=== PATIENT | female | born 1950 | race African-American/Black ===

== ENCOUNTER 2017-05-10 08:33 | Emergency (ER) | payer OTHER ==
[~2017-05-10] VITALS: Ht 175.3 cm; Wt 113.4 kg
[2017-05-10 08:47] VITALS: BP 179/89
[2017-05-10] MEDS ORDERED: HYDROcodone-ACET 10/325MG TAB PO ONE (10:45)
== END 2017-05-10 11:58 | disposition home or self-care (01) ==
LOC: ER 08:33
DX: S93.402A Sprain of unspecified ligament of left ankle, initial encounter (principal); I10 Essential (primary) hypertension; E11.9 Type 2 diabetes mellitus without complications; E78.00 Pure hypercholesterolemia, unspecified; Z90.710 Acquired absence of both cervix and uterus; W19.XXXA Unspecified fall, initial encounter; Y93.89 Activity, other specified; Y99.8 Other external cause status; Y92.89 Other specified places as the place of occurrence of the external cause
CPT/HCPCS: 29515; 73610; 73700

== ENCOUNTER 2024-02-10 06:17 | Emergency (ER) | payer OTHER ==
[~2024-02-10] VITALS: Ht 175.3 cm; Wt 114.2 kg
[2024-02-10] MEDS: ACETAMINOPHEN 325 MG TAB PO ONE (08:50)
[2024-02-10 08:51] VITALS: BP 134/74; PULSE 88; RESP 16; TEMP 97.6; O2SAT 98
== END 2024-02-10 08:54 | disposition home or self-care (01) ==
LOC: ER 06:17
DX: S92.322A Displaced fracture of second metatarsal bone, left foot, initial encounter for closed fracture (principal); S92.332A Displaced fracture of third metatarsal bone, left foot, initial encounter for closed fracture; S92.342A Displaced fracture of fourth metatarsal bone, left foot, initial encounter for closed fracture; I10 Essential (primary) hypertension; E11.9 Type 2 diabetes mellitus without complications; E78.5 Hyperlipidemia, unspecified; Z90.710 Acquired absence of both cervix and uterus; X58.XXXA Exposure to other specified factors, initial encounter; Y93.89 Activity, other specified; Y92.810 Car as the place of occurrence of the external cause; Y99.8 Other external cause status
CPT/HCPCS: 73630